=== PATIENT | male | born 1960 | race Caucasian/White ===

== ENCOUNTER 2017-09-27 00:03 | Emergency (ER) | payer OTHER ==
[~2017-09-27] VITALS: Ht 175.3 cm; Wt 106.6 kg
[2017-09-27] MEDS ORDERED: XARELTO20 MG PO (00:13)
[2017-09-27] MEDS ORDERED: ATORVASTATIN CA40 MG PO (00:13)
[2017-09-27] MEDS ORDERED: LISINOPRIL10 MG PO (00:13)
[2017-09-27] MEDS ORDERED: CARDIZEM CD180 MG PO (00:14)
[2017-09-27 02:16] VITALS: BP 144/91
[2017-09-27] MEDS ORDERED: KEFLEX500 M1 PO (02:16)
[2017-09-27] MEDS ORDERED: HYDROCODON-ACE1 EAC7 PO (02:16)
== END 2017-09-27 02:19 | disposition home or self-care (01) ==
LOC: M.ERS 00:03
DX: S61.412A Laceration without foreign body of left hand, initial encounter (principal); I48.91 Unspecified atrial fibrillation; E78.5 Hyperlipidemia, unspecified; I10 Essential (primary) hypertension; W26.0XXA Contact with knife, initial encounter; Y93.89 Activity, other specified; Y92.89 Other specified places as the place of occurrence of the external cause; Y99.8 Other external cause status

== ENCOUNTER → 2017-11-13 | Outpatient (CLI) | payer OTHER ==
[~2017-11-13] MED LIST: ATORVASTATIN CA40 MG PO; CARDIZEM CD180 MG PO; HYDROCODON-ACE1 EAC7 PO; KEFLEX500 M1 PO; LISINOPRIL10 MG PO; XARELTO20 MG PO
== END ==
LOC: M.MRI 13:14
DX: M47.816 Spondylosis without myelopathy or radiculopathy, lumbar region (principal); M48.061 Spinal stenosis, lumbar region without neurogenic claudication; I48.91 Unspecified atrial fibrillation; I10 Essential (primary) hypertension; E78.5 Hyperlipidemia, unspecified